=== PATIENT | female | born 1985 | race American Indian/Alaskan Native ===

== ENCOUNTER 2024-07-21 15:12 | Emergency (ER) | payer OTHER ==
[~2024-07-21] VITALS: Ht 157.5 cm
[~2024-07-21 15:12] MED LIST: KETOROLAC TROME10 MG PO; NORCO 5-325 TA1 EACH PO
[2024-07-21] MEDS ORDERED: ondansetron HCL 4 MG/2 ML VIAL IV ONE (15:45)
[2024-07-21 15:54] LABS: BASOPHILS 0.6 % (0-2); EOSINOPHILS 4.3 % (0-6); HEMATOCRIT 41.8 % (35.0-50.0); HEMOGLOBIN 14.2 g/dL (12.0-18.0); LYMPHOCYTES 20.9 % (24-44); MCHC 33.9 g/dl (30-36); MCV 88.6 fl (81-99); MONOCYTES 3.9 % (0-12); NEUTROPHILS 70.3 % (39-80); PLATELET COUNT 289 K/uL (140-440); RBC 4.72 M/ul (4.3-5.7); RDW 13.6 (10.5-15.0)
[2024-07-21 16:09] LABS: ALBUMIN 3.4 g/dL (3.4-5.0); ALBUMIN/GLOBULIN RATIO 0.76 (1.1-2.4); ANION GAP 12.6 (7-21); BILIRUBIN, TOTAL 1.2 ng/dL (0.2-1.0); BUN/CREATININE RATIO 7.4 (6.0-28.6); CALCIUM 8.4 mg/dL (8.5-10.1); CREATININE, SERUM 0.81 mg/dL (0.55-1.02); POTASSIUM 3.6 mmol/L (3.5-5.1); PROTEIN, TOTAL 7.9 g/dL (6.4-8.2)
[2024-07-21] MEDS ORDERED: SODIUM CHLORIDE 0.9% 1,000 ML IV ONE (16:30)
[2024-07-21] MEDS ORDERED: ONDANSETRON ODT8 MG PO (16:51)
[2024-07-21 17:00] VITALS: BP 132/76
== END 2024-07-21 17:00 | disposition home or self-care (01) ==
LOC: ED 15:12
PROVIDERS: Emergency Medicine
DX: R11.15 Cyclical vomiting syndrome unrelated to migraine (principal); R74.01 Elevation of levels of liver transaminase levels; F12.90 Cannabis use, unspecified, uncomplicated; F17.210 Nicotine dependence, cigarettes, uncomplicated
CPT/HCPCS: 36415; 80053; 83690; 84703; 85025; 96374; 99284-25; J2405; J7030